=== PATIENT | male | born 1980 | race Caucasian/White ===

== ENCOUNTER → 2018-12-01 | Outpatient (CLI) | payer BC ==
--- NOTE | 2018-12-01 15:16 | RADIOLOGY REPORT (SQ) ---
EXAM DESCRIPTION: MRI LT LOWER JOINT WITHOUT COMPLETED DATE/TIME: 12/01/2018 11:25 am REASON FOR STUDY: PAIN IN LEFT KNEE (M25.562) M25.562 PAIN IN LEFT KNEE COMPARISON: None. TECHNIQUE: Leftknee images acquired and stored on PACS. Multiplanar images include fat sensitive se quences as T1, water sensitive sequences as FST2 or STIR, cartilage sensitive sequences as FSPD, and gradient echo sequences. LIMITATIONS: None. FINDINGS: JOINT AND BURSAE: Sizable joint effusion. No large loose bodies evident. BONE CORTEX AND MARROW: No alteration of signal to suggest marrow replacement. No worrisome bone lesi ons. No occult fracture. ACL: Mild signal within the substance of the ACL but the major fiber bundles are intact. PCL: Intact. MCL: Intact. LCL: Intact. MEDIAL MENISCUS: Mild degenerative signal. LATERAL MENISCUS: No tears. No abnormal signal. MEDIAL COMPARTMENT: Mild fibrillation in the femoral chondral articular surface. No discrete full-th ickness defects. No reactive bone changes. Tibial cartilage maintained. LATERAL COMPARTMENT: Cartilage preserved. No bone bruises or reactive marrow edema. No osteophytes. PATELLA: Normal location. Generally preserved patellar cartilage. Some central femoral cartilage fi ssuring is likely. EXTENSOR MECHANISM: Intact. Quadriceps and patella tendons normal. SOFT TISSUES: Robles's cyst with probable partial rupture. Mild edema in the distal thigh and proxima l calf. OTHER: No other significant finding. IMPRESSION: 1. Joint effusion. 2. Robles's cyst with probable partial rupture. 3. Chondral changes as above. Mild chondral irregularity in the medial femoral condyle without full- thickness defect. 4. No overt meniscus tear or high-grade cruciate or collateral ligament injury. Low grade ACL sprain is likely. TECHNICAL DOCUMENTATION: JOB ID: [id number] [employer]- All Rights Reserved Reading location - IP/workstation name: [email or web address]
== END ==
LOC: RAD 10:13
PROVIDERS: ATTEND Physician Assistant
DX: M25.562 Pain in left knee (principal); M25.462 Effusion, left knee; M71.22 Synovial cyst of popliteal space [Baker], left knee

== ENCOUNTER → 2020-06-07 | Outpatient (CLI) | payer BC ==
--- NOTE | 2020-06-08 09:44 | RADIOLOGY REPORT (SQ) ---
EXAM DESCRIPTION: MRI LUMBAR SPINE WITHOUT IMAGES COMPLETED DATE/TIME: 06/07/2020 6:55 pm REASON FOR STUDY: (M51.36)OTHER INTERVERTEBRAL DISC DEGENERATION, LUMBAR REGION M51.36 OTHER INTERV ERTEBRAL DISC DEGENERATION, LUMBAR REGION COMPARISON: None. TECHNIQUE: Sagittal and Axial imaging includes T1, T2, STIR and gradient echo sequences. Coronal T2/ HASTE imaging. LIMITATIONS: None. FINDINGS: VISUALIZED UPPER ABDOMEN: Limited evaluation. No acute or suspicious findings suggested. SEGMENTATION: No transitional anatomy. The lowest well-developed disc space is labeled L5-S1. ALIGNMENT: Anatomic. VERTEBRAE: Intact. BONE MARROW: Normal. No marrow replacement or reactive changes. DISC SIGNAL: Decreased T2 weighted intervertebral disc signal with disc space loss of height at L5-S1 POSTERIOR ELEMENTS: Degenerative bilateral spondylolysis at L5 without listhesis HARDWARE: None in the spine. CORD AND CONUS: Normal in size and signal intensity. Conus at the L1 level. SOFT TISSUES: No aortic aneurysm seen. No bulky retroperitoneal adenopathy or mass. No paraspinal mas s or fluid. T12-L1: Mild bilateral facet hypertrophy. No central or foraminal stenosis L1-L2: Mild bilateral facet hypertrophy. No central or foraminal stenosis L2-L3: Mild bilateral facet hypertrophy. No central or foraminal stenosis L3-L4: Borderline central canal narrowing results from broad diffuse posterior disc bulging and moder ate bilateral facet and ligament hypertrophy. Mild bilateral inferior foraminal narrowing without ex it nerve root impingement L4-L5: Borderline central canal narrowing results from broad diffuse posterior disc bulging and moder ate bilateral facet and ligament hypertrophy. [id number] bilateral foraminal narrowing from fa cet and uncovertebral hypertrophy. L5-S1: Degenerative spondylolysis at L5 without listhesis. Broad diffuse posterior disc bulging is p resent with a central protrusion flattening the thecal sac near the takeoff of the bilateral S1 nerve roots in the lateral recess, best shown on axial T2 images 31 and 32. Mild central canal stenosis a t L5-S1 from disc bulge moderate facet hypertrophy. There is high-grade bilateral foraminal narrowing at L5-S1 with effacement of fat around the exiting L5 nerve roots SACRUM: Visualized upper sacrum intact. OTHER: No other significant findings. IMPRESSION: Degenerative changes most pronounced at L4-5 and L5-S1 as above TECHNICAL DOCUMENTATION: JOB ID: [id number] [employer]- All Rights Reserved Reading location - IP/workstation name: [email or web address]
== END ==
LOC: RAD 18:05
PROVIDERS: ATTEND Nurse Practitioner
DX: M51.36 Other intervertebral disc degeneration, lumbar region (principal)
CPT/HCPCS: 72148